=== PATIENT | male | born 1980 | race Caucasian/White ===

== ENCOUNTER 2016-08-28 14:42 | Emergency (ER) | payer BC, OTHER ==
[~2016-08-28] VITALS: Ht 188 cm; Wt 117.9 kg
[2016-08-28 15:16] VITALS: BP 145/97
--- NOTE | 2016-08-28 15:51 | ED Back Pain ---
General Chief Complaint: Back Problems Stated Complaint: BACK PAIN Nursing Triage Note: PT C/O CHRONIC BACK PAIN. REPORTEDLY TAKES SEVERAL NARCOTICS FOR SAID BACK PROBLEMS. STATES HE JUST MOVED TO TOWN. Nursing Sepsis Screen: No Definite Risk History of Present Illness Time Seen by Provider: 15:30 Initial Comments Patient reports long-standing history of back problems, he has 2-3 herniated discs in his lumbar spine. He recently moved to [place] from [place], [place]. Splint to be established with Dr. Alegre for care. He believes this pain has gotten worse since he has been doing manual lifting to move. Per [facility] he got Oxycodone 15 mg # 150 on 08/16/16 and #150 on 07/25/16. Oxycontin 40 mg #60 07/18/16. He also takes Neurontin for pain. Location: Lumbar Spine, Paraspinous Muscles Timing/Duration: Constant Severity: Severe (patient reports pain 10 out of 10) Pain/Injury Location: Back Method of Injury: Other (menial labor) Modifying Factors: Improves With Pain Medication, Improves With Rest Associated Symptoms: muscle spasms, No numbness in legs/feet, No tingling in legs/feet, sensory/motor loss, lower back pain, No loss of bladder control, No loss of bowel control Allergies and Home Medications Allergies Coded Allergies: azithromycin (Verified Allergy, Unknown, 08/28/16) sulfamethoxazole (Verified Allergy, Unknown, 08/28/16) trimethoprim (Verified Allergy, Unknown, 08/28/16) Home Medications Gabapentin 300 Mg Capsule, 300 MG PO QID, (Reported) Oxycodone HCl 15 Mg Tablet, 15 MG PO 5XD, (Reported) Oxycodone HCl 40 Mg Tab.er.12h, 40 MG PO BID, (Reported) Date Seen by Provider: Aug 28, 2016 Time Seen by Provider: 15:30 Constitutional: no symptoms reported, see HPI EENTM: no symptoms reported, see HPI Respiratory: no symptoms reported, see HPI Cardiovascular: no symptoms reported, see HPI Gastrointestinal: no symptoms reported, see HPI Genitourinary: no symptoms reported, see HPI Musculoskeletal: see HPI, back pain Skin: no symptoms reported, see HPI Psychiatric/Neurological: No Symptoms Reported, See HPI All Other Systems Reviewed Negative Unless Noted: Yes Past Juexpdy-Bgcird-Zgrkom Hx Patient Social History Alcohol Use: Denies Use Recreational Drug Use: No Smoking Status: Never a Smoker 2nd Hand Smoke Exposure: No Recent Foreign Travel: No Contact w/Someone Who Travel: No Recent Infectious Disease Expo: No Recent Hopitalizations: No Seasonal Allergies Seasonal Allergies: No Surgeries Surgeries: Appendectomy Musculoskeletal Musculoskeletal Disorders: Chronic Back Pain Reviewed Nursing Assessment Reviewed/Agree w Nursing PMH: Yes Physical Exam Vital Signs Vital Sign - Last 12Hours 08/28/16 15:16 Temp 97.0 Pulse 56 Resp 19 B/P (MAP) 145/97 Pulse Ox 97 O2 Delivery Room Air Capillary Refill : Less Than 3 Seconds General Appearance: No Apparent Distress, WD/WN HEENT: PERRL/EOMI, TMs Normal, Normal ENT Inspection, Pharynx Normal Neck: Full Range of Motion, Normal Inspection Cardiovascular: Regular Rate, Rhythm, No Edema, Normal Peripheral Pulses Respiratory: Chest Non Tender, Lungs Clear Gastrointestinal: Normal Bowel Sounds, Non Tender, Soft Back: Normal Inspection, No CVA Tenderness, Decreased Range of Motion, Muscle Spasm, Other (power V /V L4-S1, sensation intact bilateral lower extremities. Negative straight leg raising sign, bilateral.) Extremity: Normal Capillary Refill, Normal Inspection, Normal Range of Motion, Non Tender, No Calf Tenderness, No Pedal Edema Neurologic/Psychiatric: Oriented x3, No Motor/Sensory Deficits, Normal Mood/ Affect Skin: Normal Color, Warm/Dry Progress/Results/Core Measures Results/Orders My Orders Orders - BHAVYA CELESTIN Tramadol Tablet (Ultram Tablet) (08/28/16 16:01) Vital Signs/I&O Vital Sign - Last 12Hours 08/28/16 15:16 Temp 97.0 Pulse 56 Resp 19 B/P (MAP) 145/97 Pulse Ox 97 O2 Delivery Room Air Progress Note : Time: 15:30 Progress Note Discussed at length with the patient his use of narcotic pain medications and the fact that he received 150 oxycodone on 08/16/16 and that should've lasted him at least 25 days. He is unsure what happened to some of his medications during his move. He does report that he has a prescription at [facility] that was prescribed by his previous physician, however he is not able to pick it up for 2 more days due to the number of narcotics he has received recently. We discussed the need for him to receive more definitive care for his back including possible evaluation by an orthopedic station air traffic control specialist. He is open to this suggestion and will talk to Dr. Alegre with it in more detail. Until that time I recommended that he is Tylenol for pain and continue the gabapentin. Departure Impression Impression: Primary Impression: Back pain Qualified Codes: M54.5 - Low back pain; G89.29 - Other chronic pain Disposition: 01 HOME, SELF-CARE Condition: Stable Departure-Patient Inst. Decision time for Depature: 16:00 Referrals: NO,LOCAL PHYSICIAN (PCP/Family) Primary Care Physician Patient Instructions: MANAGING YOUR CHRONIC PAIN, Low Back Pain (DC) Add. Discharge Instructions: Recommend gentle back exercises. Establish with Dr. Alegre for management of chronic problems. Fill prescription for pain medication when able at [facility]. Alternate Tylenol 650 mg and Ibuprofen 800 mg every 4 hours. Return to emergency department for worsening symptoms, urinary or bowel incontinence or retention, new injury or problem. All discharge instructions reviewed with patient and/or family. Voiced understanding. Copy Copies To 1: MARJORIE ALEGRE MD, AMY ARNP Aug 28, 2016 15:51
[2016-08-28] MEDS ORDERED: GABA-488 PO (16:24)
[2016-08-28] MEDS ORDERED: OXYC15TA79 PO (16:24)
[2016-08-28] MEDS ORDERED: OXYC40TA46 PO (16:24)
== END 2016-08-28 16:28 | disposition home or self-care (01) ==
LOC: ER 14:45
DX: M54.5 Low back pain (principal); Z98.890 Other specified postprocedural states
CPT/HCPCS: 99281

== ENCOUNTER → 2017-02-25 | Outpatient (CLI) | payer BC, MEDICAID ==
[~2017-02-25] MED LIST: GABA-488 PO; OXYC15TA79 PO; OXYC40TA46 PO
--- NOTE | 2017-02-25 15:57 | Diagnostic Imaging Report ---
PROCEDURE: MRI lumbar spine. TECHNIQUE: Multiplanar, multisequence MRI of the lumbar spine was performed without contrast. INDICATION: Back pain. FINDINGS: There is satisfactory alignment of the lumbar spine at the posterior spinal line. The vertebral body heights are preserved. There is mild edema along the endplates of L5/S1. Disc desiccation and disc height loss of moderate to severe degree is seen at L4/5 and L5/S1 and moderate disc height loss at L3/4 is present. There is no suspicious bone marrow lesion identified. There is a relatively narrow AP dimension of the spinal canal and the lower lumbar spine particularly around L4 level without significant congenital spinal canal stenosis however. There is unremarkable appearance of the cauda equina and conus medullaris. The cauda equina and conus medullaris appear grossly unremarkable. T12/L1: There is no disc herniation, no spinal canal or foraminal stenosis. L1/2: No disc herniation, no spinal canal or foraminal stenosis. L2/3: No disc herniation. There is mild facet hypertrophy. No spinal canal stenosis. L3/4: There is a diffuse disc bulge causing moderate to severe spinal canal stenosis and reducing the AP dimension of the canal to 5.9 mm. There is mild facet hypertrophy. The lateral recess demonstrates bilateral moderate stenosis worse on the left side. The foramina demonstrate mild stenosis bilaterally. L4/5: There is diffuse disc bulge and mild to moderate facet hypertrophy. There is moderate spinal canal stenosis reducing the AP dimension of the canal to 6.7 mm. The lateral recess demonstrates mild to moderate stenosis on the left and moderate stenosis on the right side. The foramina demonstrate bilateral moderate stenosis. There is extraforaminal prominent component of the disc on the left side abutting the exiting left L4 spinal nerve after exiting the foramen. L5/S1: There is a diffuse disc bulge asymmetric to the right side and minimal facet hypertrophy. No central canal stenosis. The foramina demonstrate bilateral stenosis moderate to severe on the left and severe on the right side. IMPRESSION: Lower lumbar spine disc herniations and facet arthropathy resulting in central canal, lateral recess and foraminal stenosis at levels from L3/4 to L5/S1 as described. Dictated by: Dictated on workstation # [id number]
== END ==
LOC: RAD 13:21
PROVIDERS: ATTEND Physician Assistant
DX: M48.07 Spinal stenosis, lumbosacral region (principal); M46.86 Other specified inflammatory spondylopathies, lumbar region; M51.26 Other intervertebral disc displacement, lumbar region
CPT/HCPCS: 72148